=== PATIENT | female | born 1995 | race Hispanic/Latino ===

== ENCOUNTER 2024-11-16 12:13 | Emergency (ER) | payer OTHER ==
[~2024-11-16] VITALS: Ht 165.1 cm; Wt 68.0 kg
[2024-11-16] MEDS ORDERED: CLIN-141 PO (12:22)
--- NOTE | 2024-11-16 12:22 | ERN ---
ED Note History of Present Illness Stated Complaint: LEFT FACIAL SWELLING Chief Complaint: Face Pain/Problem Time Seen by MD: 12:17 Dictation: PATIENT IS A 29-YEAR-OLD FEMALE HERE WITH HER MOTHER WITH COMPLAINTS OF MILD LEFT FACIAL SWELLING PROXIMAL TOOTH NUMBER 20. SHE HAS HAD A CRACKED TOOTH FOR SEVERAL WEEKS HAS NOT BEEN TO SEE HER DENTIST. HE HAS HAD NO FEVER NO CHILLS. Allergies: Coded Allergies: No Known Allergies (Unverified Allergy, Unknown, 11/16/24) Past Medical History Past Medical History: No Pertinent History Surgical History: None History: Not Applicable LMP: Nov 15, 2024 RN Note Reviewed/Agreed w/PFSH: Yes Review of System Dictation CONSTITUTIONAL: NEGATIVE EXCEPT FOR HPI HEAD/FACE: NEGATIVE EXCEPT FOR HPI EENT: NEGATIVE EXCEPT FOR HPI CRACKED TOOTH 20. WITH FACIAL SWELLING PROXIMAL RESPIRATORY: NEGATIVE EXCEPT FOR HPI GASTROINTESTINAL/ABDOMINAL: NEGATIVE EXCEPT FOR HPI GENITOURINARY: NEGATIVE EXCEPT FOR HPI MUSCULOSKELETAL: NEGATIVE EXCEPT FOR HPI INTEGUMENTARY: NEGATIVE EXCEPT FOR HPI NEUROLOGICAL/PSYCH: NEGATIVE EXCEPT FOR HPI HEMATOLOGIC/LYMPHATIC: NEGATIVE EXCEPT FOR HPI ALL SYSTEMS NEGATIVE, EXCEPT NOTED ABOVE. 13 POINT REVIEW OF SYSTEMS ASSESSED AND ALL NEGATIVE EXCEPT FOR ABOVE. Initial Vital Sign VS Vital Signs Date Time Temp Pulse Resp B/P (MAP) Pulse Ox O2 Delivery O2 Flow Rate FiO2 11/16/24 12:15 98.4 77 16 129/86 98 Room Air 0 Physical Exam Dictation VITAL SIGNS REVIEWED GENERAL APPEARANCE: ALERT, ORIENTED X 3, MILD ACUTE DISTRESS, WELL DEVELOPED, NOURISHED. HEAD AND FACE: NON-TRAUMATIC. MILD LEFT FACIAL SWELLING PROXIMAL TOOTH NUMBER 20 EYES: PERRL, PINK CONJUNCTIVAS, EYELID NO TRAUMA, ANTERIOR CHAMBER WITH ARCUS SENILIS. EARS: PINNAS INTACT AND NO SIGNS OF TRAUMA OR ERYTHEMA EAR CANALS CLEAR AND NO DISCHARGE TM NO ERYTHEMA NOSE: NO DISCHARGE, NO BLEEDING. OROPHARYNX: MOUTH NORMAL, TONGUE PINK, TOOTH NUMBER CRACK MILD ERYTHEMA TENDERNESS ERYTHEMA PHARYNX CLEAR,NO ERYTHEMA, TONSILS NO EXUDATES, NO ABSCESSES NOTED, MUCOUS MEMBRANE MOIST NECK: SUPPLE, NON-TENDER, NO THYROMEGALY, NO MASSES, NO JVD, NO BRUITS BREAST:DEFERRED CHEST:NO TENDERNESS, NO CREPITUS, NO PARADOXICAL MOVEMENT, NO RETRACTIONS LUNGS:CLEAR, WELL-VENTILATED, SYMMETRIC, NO RALES, NO WHEEZING, NO RHONCHI, NO STRIDOR, GOOD BREATH SOUNDS BILATERALLY HEART: REGULAR RATE, REGULAR RHYTHM, NO MURMUR, NO GALLOPS VASCULAR: NO PERIPHERAL EDEMA, ABDOMEN: SOFT, POSITIVE BOWEL SOUNDS, NONDISTENDED, NO GUARDING, NONTENDER, NO REBOUND, NO MASSES NO HEPATOMEGALY, NO SPLENOMEGALY, NO LOWE'S SIGN, NO HERNIAS. RECTAL: DEFERRED GENITAL: DEFERRED NEUROLOGICAL: NORMAL SPEECH, MOTOR FUNCTION INTACT, SENSORY FUNCTION INTACT MUSCULOSKELETAL: NECK NONTENDER, FULL RANGE OF MOTION, BACK NONTENDER, FULL RANGE OF MOTION, EXTREMITIES: NONTENDER, FULL RANGE OF MOTION SKIN: COLOR PINK, DRY, NO TURGOR, NO RASH, NO LACERATIONS, NO ABRASIONS, NO CONTUSIONS. LYMPHATIC: DEFERRED Results (Laboratory/Radiology) Labs Reviewed?: Yes ED Course ED Course Orders Procedure Category Date Status Time Acetaminophen 500mg PHA 11/16/24 Transmitted Tab (Tylenol 500mg T 12:30 Clindamycin 150mg Cap PHA 11/16/24 Transmitted (Cleocin 150mg Cap 12:30 Vital Signs Date Time Temp Pulse Resp B/P (MAP) Pulse Ox O2 Delivery O2 Flow Rate FiO2 11/16/24 12:15 98.4 77 16 129/86 98 Room Air 0 1220/PATIENT TOLD IT SHE WILL NEED TO SEE HER DENTIST FOR FOLLOW UP ON HER TOOTH FRACTURE. WE WILL INITIATE CLINDAMYCIN ALL QUESTIONS ANSWERED Medical Decision Making MDM MEDICAL DECISION-MAKING BASED ON EMPIRIC TREATMENT FOR A MILD DENTAL INFECTION WITH A TOOTH FRACTURE. NO LABS OR IMAGING INDICATED PATIENT WILL BE GIVEN CLINDAMYCIN AND TYLENOL TOLD TO SEE HER DENTIST HER PRIMARY CARE DOCTOR TODAY OR TOMORROW FOR MANAGEMENT DX & DISP Disposition: Discharge Departure Impression: Primary Impression: Fracture, tooth Additional Impression: Swelling of left side of face Condition: Stable Scripts Clindamycin HCl (Clindamycin HCl) 300 Mg Capsule 1 CAP PO QID for 10 Days, #40 CAP 0 Refills Prov: CHRISTIAN GAONA [employer]ACH[employer] P[employer]ER 11/16/24 Additional Instructions: FOLLOW-UP WITH PRIMARY CARE PROVIDER IN 1 TO 2 DAYS. TAKE MEDICATIONS DIRECTED HERE IN THE EMERGENCY ROOM. OKAY TO CONTINUE HOME MEDICATIONS UNLESS OTHERWISE DISCUSSED DURING YOUR VISIT IN THE EMERGENCY ROOM TODAY. RETURN TO YOUR NEAREST EMERGENCY ROOM IF SYMPTOMS WORSEN OR IF THERE IS NO IMPROVEMENT. CALL 911 IF YOU NEED IMMEDIATE ASSISTANCE. TAKE TYLENOL OR MOTRIN [id number] NEEDED AND IF NO CONTRAINDICATIONS ARE PRESENT. INCREASE ORAL HYDRATION. A WOUND CULTURE OR URINE CULTURE WAS ORDERED HERE IN THE EMERGENCY ROOM DEPARTMENT PLEASE FOLLOW-UP WITH PRIMARY CARE PROVIDER AND ADVISE THEM TO GET REPEAT PORTS FROM OUR FACILITY. IF YOU HAD ANY BRYCE WRAP/SPLINTS THAT WERE APPLIED HERE, PLEASE DO NOT REMOVE THEM UNTIL YOU SEE YOUR PRIMARY CARE OR SPECIALTY. TAKE ANTIBIOTICS DIRECTED UNTIL GONE. FOLLOW UP WITH YOUR DENTIST IN THE NEXT ONE TWO DAYS FOR MANAGEMENT OF YOUR DENTAL FRACTURE. Referrals: SELF,REFERRAL (PCP) Time of Disposition: 12:21 I have reviewed the case, and I agree with, Diagnosis and Plan CHRISTIAN GAONA NP Nov 16, 2024 12:22
[2024-11-16] MEDS: CLINDAMYCIN 150 MG CAP PO ONE (14:35)
[2024-11-16 14:56] VITALS: BP 122/78; PULSE 72; RESP 16; TEMP 98.4; O2SAT 98
== END 2024-11-16 14:57 | disposition home or self-care (01) ==
LOC: EDH 12:13
DX: K03.81 Cracked tooth (principal); R22.0 Localized swelling, mass and lump, head
CPT/HCPCS: 99283